=== PATIENT | female | born 1985 | race American Indian/Alaskan Native ===

== ENCOUNTER 2017-08-13 09:24 | Emergency (ER) | payer BC ==
[2017-08-13 09:30] VITALS: BP 168/84
[2017-08-13 12:23] LABS: Hematocrit 44.5 % (30.3-42.9); Hemoglobin 15.2 gm/dl (10.1-14.3); Mean Corpuscular HGB Conc 34 % (30-34); Mean Corpuscular Hemoglobin 32 pg (28-32); Mean Corpuscular Volume 94 fl (79-97); Platelet Count 177 K/mm3 (140-440); Red Blood Count 4.74 M/mm3 (3.65-5.03); Red Cell Distribution Width 13.6 % (13.2-15.2)
[2017-08-13 12:43] LABS: Alanine Aminotransferase 29 units/L (7-56); BUN/Creatinine Ratio 18; Blood Urea Nitrogen 11 mg/dL (7-17); Calcium 10.4 mg/dL (8.4-10.2); Hemolysis Index 37; Lipase 13 units/L (13-60)
[2017-08-13] MEDS ORDERED: ZOFRAN IV ONE (13:00)
[2017-08-13] MEDS ORDERED: NACL 0.9% 1000 ML 1,000 ML IV ONE (13:00)
[2017-08-13 13:03] LABS: Bilirubin,Urine NEG (Negative); Blood,Urine MOD (Negative); Color,Urine Yellow (Yellow); Mucus,Urine 3+ /HPF; Urobilinogen,Urine < 2.0 mg/dL (<2.0)
--- NOTE | 2017-08-13 13:04 | Emergency Department Report ---
ED Abdominal Pain HPI - General Chief Complaint: Nausea/Vomiting/Diarrhea Stated Complaint: VOMITING/DIARRHEA Time Seen by Provider: 08/13/17 12:56 Source: patient Mode of arrival: Ambulatory Limitations: No Limitations - History of Present Illness Initial Comments: Pt presents with diffuse abdominal pain with nausea, vomiting, diarrhea that began a couple hours after eating [employer] last night. Reports chills. MD Complaint: abdominal pain -: Gradual, days(s) (1) Location: diffuse (but worst in LLQ) Radiation: none Severity: moderate Severity scale (0 -10): 6 Quality: cramping, aching Consistency: constant Improves With: nothing Worsens With: nothing Context: possible food poisoning Associated Symptoms: nausea, vomiting, diarrhea, chills. denies: constipation, dysuria - Related Data Previous Rx's Medication Instructions Recorded Last Taken Type Hyoscyamine Subl [Levsin Sl 0.125 0.125 mg SL Q6HR PRN #12 tab 08/13/17 Unknown Rx TAB] Promethazine [Phenergan TAB] 25 mg PO Q6HR PRN #12 tab 08/13/17 Unknown Rx Allergies Allergy/AdvReac Type Severity Reaction Status Date / Time No Known Allergies Allergy Unverified 08/13/17 09:27 ED Review of Systems ROS: Stated complaint: VOMITING/DIARRHEA Other details as noted in HPI Comment: All other systems reviewed and negative Constitutional: chills. denies: fever Eyes: denies: eye pain, eye discharge, vision change ENT: denies: ear pain, throat pain Respiratory: denies: cough, shortness of breath, wheezing Cardiovascular: denies: chest pain, palpitations Endocrine: no symptoms reported Gastrointestinal: abdominal pain, nausea, vomiting, diarrhea Genitourinary: denies: urgency, dysuria, discharge Musculoskeletal: denies: back pain, joint swelling, arthralgia Skin: denies: rash, lesions Neurological: denies: headache, weakness, paresthesias Psychiatric: denies: anxiety, depression Hematological/Lymphatic: denies: easy bleeding, easy bruising ED Past Medical Hx - Past Medical History Previous Medical History?: No - Surgical History Additional Surgical History: left knee - Social History Smoking Status: Current Every Day Smoker Substance Use Type: None - Medications Home Medications: Home Medications Medication Instructions Recorded Confirmed Last Taken Type Hyoscyamine Subl [Levsin Sl 0.125 0.125 mg SL Q6HR PRN #12 tab 08/13/17 Unknown Rx TAB] Promethazine [Phenergan TAB] 25 mg PO Q6HR PRN #12 tab 08/13/17 Unknown Rx ED Physical Exam - General Limitations: No Limitations General appearance: alert, in no apparent distress - Head Head exam: Present: atraumatic, normocephalic - Eye Eye exam: Present: normal appearance - ENT ENT exam: Present: mucous membranes moist - Neck Neck exam: Present: normal inspection - Respiratory Respiratory exam: Present: normal lung sounds bilaterally. Absent: respiratory distress, wheezes - Cardiovascular Cardiovascular Exam: Present: regular rate, normal rhythm. Absent: systolic murmur, diastolic murmur, rubs, gallop - GI/Abdominal GI/Abdominal exam: Present: soft, tenderness (diffuse), normal bowel sounds. Absent: distended, guarding, rebound, rigid - Extremities Exam Extremities exam: Present: normal inspection - Back Exam Back exam: Present: normal inspection - Neurological Exam Neurological exam: Present: alert, oriented X3 - Psychiatric Psychiatric exam: Present: normal affect, normal mood - Skin Skin exam: Present: warm, dry, intact, normal color. Absent: rash ED Course Vital Signs 08/13/17 09:28 Temperature 98.1 F Pulse Rate 78 Respiratory 16 Rate Blood Pressure 168/84 O2 Sat by Pulse 100 Oximetry - Reevaluation(s) Reevaluation #1: 08/13/17 14:48 Abdomen remains tender and patient still nauseated. Will give Reglan, Toradol, and obtain CT A/P. Reevaluation #2: 08/13/17 16:36 Pt is tolerating PO, abdomen is soft. Stable for d/c. ED Medical Decision Making - Lab Data Result diagrams: 08/13/17 11:50 08/13/17 11:50 moderate blood in urine. - Radiology Data Radiology results: report reviewed normal CT A/P - Medical Decision Making Pt presented with symptoms suggestive of gastroenteritis. Persistent pain and nausea after initial meds (Bentyl PO, IVF, IV Zofran) so CT obtained and is found to be negative. Given additional meds (Toradol and Reglan IV) and is now feeling much better and tolerating PO. Supportive care discussed. - Differential Diagnosis gastroenteritis, colitis, UTI Critical care attestation.: If time is entered above; I have spent that time in minutes in the direct care of this critically ill patient, excluding procedure time. ED Disposition Clinical Impression: Abdominal pain in female patient, Nausea vomiting and diarrhea Disposition: TO HOME OR SELFCARE Is pt being admited?: No Condition: Good Instructions: Acute Nausea and Vomiting (ED), Abdominal Pain (ED), Gastroenteritis (ED) Additional Instructions: Your blood work and CT scan were essentially normal today. There was some blood noted in your urine so it is recommended to have this rechecked with primary care. Prescriptions: Hyoscyamine Subl [Levsin Sl 0.125 TAB] 0.125 mg SL Q6HR PRN #12 tab PRN Reason: pain/cramping Promethazine [Phenergan TAB] 25 mg PO Q6HR PRN #12 tab PRN Reason: Nausea Referrals: MEL ORTIZ [Other] - 3-5 Days Time of Disposition: 16:38
[2017-08-13 13:30] LABS: Basophils % (Manual) 0 % (0.0-1.8); Total Cells Counted 100
[2017-08-13 13:31] LABS: Band Neutrophils # (Manual) 0.2 K/mm3; Eosinophils % (Manual) 0 % (0.0-4.3); RBC Morphology Normal
[2017-08-13] MEDS ORDERED: BENTYL PO ONE (14:00)
[2017-08-13] MEDS ORDERED: TORADOL IV ONE (14:48)
[2017-08-13] MEDS ORDERED: REGLAN IV ONE (14:48)
--- NOTE | 2017-08-13 15:52 | Cat Scan Report ---
FINAL REPORT PROCEDURE: CT ABDOMEN PELVIS W CON TECHNIQUE: Computerized axial tomography of the abdomen and pelvis was performed after the IV injection of iodinated nonionic contrast. HISTORY: abdominal pain, vomiting COMPARISON: No prior studies are available for comparison. FINDINGS: Visualized lower thorax: No significant abnormality. Liver: There is geographic low density in the right hepatic lobe adjacent to the fissure, compatible with focal fatty infiltration. Liver measures 19 centimeters craniocaudal. Spleen: Normal size and attenuation. Gallbladder and biliary system: Normal. Pancreas: Normal. Adrenals: Unremarkable. Kidneys: 1 centimeter right renal midpole cyst. Duplicated left renal collecting system. No hydronephrosis GI tract: Appendix does not appear inflamed. There is no bowel obstruction or acute inflammation. Lymph nodes and mesentery: Normal. Vasculature: Normal. Bladder: Normal. Reproductive organs: Normal. Peritoneum: No free fluid. Musculoskeletal structures: No acute abnormality. Other: None. IMPRESSION: No bowel obstruction or acute inflammation
== END 2017-08-13 16:57 | disposition home or self-care (01) ==
LOC: ED 09:24
DX: K52.9 Noninfective gastroenteritis and colitis, unspecified (principal); F17.200 Nicotine dependence, unspecified, uncomplicated
CPT/HCPCS: 36415; 74177; 80053; 81001; 83690; 84703; 85007; 85025; 96361; 96374; 96375; 99284; J1885; J2405; J2765; J7030; Q9967